=== PATIENT | female | born 1945 | race Caucasian/White ===

== ENCOUNTER → 2022-08-12 | Outpatient (CLI) | payer MEDICARE, MEDICAID ==
[~2022-08-12] VITALS: Ht 167 cm; Wt 87.0 kg
[~2022-08-12] MED LIST: CATHETER FLUSH 10 ML SYR IVP PRN; REGADENOSON 0.4 MG/5 ML SYR (LEXISCAN) IV ONE
[2022-08-12 13:23] VITALS: BP 140/82
--- NOTE | 2022-08-12 17:41 | Cardiology Stress Test Report ---
Stress Test Report Date of Procedure/Referring: Date of Procedure: Aug 12, 2022 PCP Prasanna Wray DO Admitting Physician Admitting Physician: Attending Physician: Saundra Alex MD Baseline Heart Rate: 93 Baseline Blood Pressure: Blood Pressure Systolic: 140 Blood Pressure Diastolic: 82 Baseline Vitals Vital Signs Date Time Temp Pulse Resp B/P (MAP) Pulse Ox O2 Delivery O2 Flow Rate FiO2 08/12/22 13:23 93 140/82 (101) Baseline EKG: Baseline EKG: NSR Summary After explaining the procedure to the patient, she signed a consent and then brought to the stress nuclear laboratory. Patient received 0.4 mg Lexiscan for stress test, ECG, heart rate and blood pressure were monitored continuously. Resting and stress dose of radio tracer were injected, imaging was acquired and reviewed in short axis, horizontal long axis and vertical long axis views. TID: 1.11 SSS: 4 SDS: 2 EF: 68 1. Patient tolerated Lexiscan well 2. Typical female pattern with no significant ischemia or infarction on SPECT images 3. Normal left ventricular size with ejection fraction 68% SAUNDRA ALEX MD Aug 12, 2022 17:41
== END ==
LOC: CARD 11:00
PROVIDERS: ATTEND Internal Medicine Cardiovascular Disease
DX: I10 Essential (primary) hypertension (principal); I25.10 Atherosclerotic heart disease of native coronary artery without angina pectoris; R07.2 Precordial pain
CPT/HCPCS: 78452; 93017; A9502; C8929; 93306

== ENCOUNTER 2022-09-10 05:30 | Outpatient (CLI) | payer MEDICARE, MEDICAID ==
[~2022-09-10] VITALS: Ht 167.6 cm; Wt 90.7 kg
[2022-09-10] MEDS ORDERED: BUDE10.22 IH (14:50)
[2022-09-10] MEDS ORDERED: SEVE800T13 PO (14:50)
[2022-09-10] MEDS ORDERED: AMIT50TA3 PO (14:50)
[2022-09-10] MEDS ORDERED: RT-ALBUINH INH (14:50)
[2022-09-10] MEDS ORDERED: FURO40TA4 PO (14:50)
[2022-09-10] MEDS ORDERED: ACET325T38 PO (14:50)
[2022-09-10] MEDS ORDERED: ALLO100T PO (14:50)
[2022-09-10] MEDS ORDERED: ONDA4TAB11 SL (14:50)
[2022-09-10] MEDS ORDERED: ATOR40TA70 PO (14:50)
[2022-09-10] MEDS ORDERED: CLOP75TA28 PO (14:50)
[2022-09-10] MEDS ORDERED: METO50TA7 PO (14:50)
== END 2022-09-10 14:52 | disposition home or self-care (01) ==
LOC: PREOP 05:30
PROVIDERS: ATTEND Surgery
DX: Z01.818 Encounter for other preprocedural examination (principal)

== ENCOUNTER 2022-09-17 09:41 | Day surgery (SDC) | payer MEDICARE, MEDICAID ==
[~2022-09-17] VITALS: Ht 167 cm; Wt 90.7 kg
[2022-09-17] VITALS (10 sets, daily range): BP systolic 188–226; BP diastolic 75–101
[~2022-09-17 09:41] MED LIST changes: +ACET325T38 PO; +ALLO100T PO; +AMIT50TA3 PO; +ATOR40TA70 PO; +BUDE10.22 IH; -CATHETER FLUSH 10 ML SYR IVP PRN; +CLOP75TA28 PO; +FURO40TA4 PO; +METO50TA7 PO; +ONDA4TAB11 SL; -REGADENOSON 0.4 MG/5 ML SYR (LEXISCAN) IV ONE; +RT-ALBUINH INH; +SEVE800T13 PO
[2022-09-17] MEDS ORDERED: LACTATED RINGERS 1,000 ML IV PRN (10:15)
[2022-09-17] MEDS ORDERED: ceFAZolin INJECTION 2,000 MG in NS (IVPB) 50 ML IV ONE (10:30)
[2022-09-17] MEDS ORDERED: NS IV 500 ML 500 ML IV PRN (10:45)
[2022-09-17 11:08] LABS: CALCIUM 9.1 MG/DL (8.5-10.1); CREATININE SERUM 3.32 MG/DL (0.60-1.30); POTASSIUM 3.8 MMOL/L (3.6-5.0)
[2022-09-17] MEDS ORDERED: proPOfol 200 MG/20 ML (DIPRIVAN) VIAL IV ONE (12:31)
[2022-09-17] MEDS ORDERED: fentaNYL INJ 100 MCG/2 ML AMP ONE (12:46)
[2022-09-17] MEDS ORDERED: ONDANSETRON 4 MG/2 ML (SDV) Z0FRAN ONE ×2 (12:55→14:37)
[2022-09-17] MEDS ORDERED: LIDOCAINE PF 2% 5 ML (XYLOCAINE) VIAL ONE (12:55)
[2022-09-17] MEDS ORDERED: HYDROmorphone 2 MG/ML VIAL (DILAUDID) ONE (12:56)
[2022-09-17] MEDS ORDERED: BUP/EPI 0.5% 1:200,000 (SENSORCAINE) 30 ML VIAL ONE (12:56)
[2022-09-17] MEDS ORDERED: ROCURONIUM 50 MG/5 ML (ZEMURON) VIAL IV ONE (12:56)
[2022-09-17] MEDS ORDERED: HEParin (CENTRAL IV FLUSH) 500 UNIT/5 ML SYR ONE (12:56)
[2022-09-17] MEDS ORDERED: BUP/EPI 0.5% 1:200,000 (SENSORCAINE) 30 ML VIAL INJ ONE (13:46)
[2022-09-17] MEDS: HEParin (CENTRAL IV FLUSH) 500 UNIT/5 ML SYR INJ ONE ×2 (13:46→14:21)
[2022-09-17] MEDS ORDERED: hydrALAZINE (APESOLINE) 20 MG/ML VIAL ONE (13:55)
[2022-09-17] MEDS ORDERED: SEVOFLURANE (ULTANE) 15 ML INHAL SOLN ONE (14:14)
[2022-09-17] MEDS ORDERED: GLYCOPYRROLATE 0.2 MG/ML (ROBINUL) 2 ML VIAL ONE (14:16)
[2022-09-17] MEDS ORDERED: NEOSTIGMINE (BLOXIVERZ ) 1 MG/1ML 10 ML VIAL ONE (14:16)
[2022-09-17] MEDS: ONDANSETRON 4 MG/2 ML (SDV) Z0FRAN IVP PRN ×2 (14:38→15:40)
[2022-09-17] MEDS ORDERED: ACHD5005 PO (14:42)
[2022-09-17] MEDS ORDERED: HYDROmorphone 2 MG/ML VIAL (DILAUDID) IV ONE (14:45)
--- NOTE | 2022-09-17 14:46 | Discharge Inst-Simple/Standard ---
Discharge Inst-Standard Discharge Medications New, Converted or Re-Newed RX: Transmitted to Pharmacy Patient Instructions/Follow Up Plan of Care/Instructions/FU: Dialysis Tomorrow for using Peritoneal dialysis catheter. Can start half runs. 200 mLs of saline have been left inside abdomen. Mayela 2 weeks. Activity as Tolerated: No Discharge Diet: Regular Diet Other Inst to Patient Follow up Appt: Make appointment for 2 week. Instructions: No lifting greater than 10 pounds. No strenuous activity. May shower in 24 hours, no tub bath or soaking. Use incentive spirometer at home as directed. No Smoking Skin/Wound Care: Keep areas clean and dry. The dialysis center will help you with the PD catheter tomorrow. Symptoms to Report: Appetite Changes, Extremity Discoloration, Numbness/Tingling, Swelling Increased, Bleeding Excessive, Eyesight Changes, Pain Increased, Urine Color Change, Constipation(Persistent), Fever over 101 degree F, Pain/Pressure in chest, Urinating Difficulty, Cough Up/Vomit Blood, Heart Beat Irreg/Pounding, Pain/Pressure in jaw, Vaginal Bleeding Increase, Cramps in feet or legs, Lightheadedness, Pain/Pressure in shoulder, Diarrhea(Persistent), Memory Changes Suddenly, Questions/Concerns, Weight gain consecutive days, Dizziness/Fainting, Nausea/Vomiting, Shortness of Breath, Weight gain over 2 pounds If questions or concerns contact your physician Or seek help at emergency department. LILIA PAEZ DO Sep 17, 2022 14:46
--- NOTE | 2022-09-18 13:29 | Anesthesia-General Post-Op ---
General Patient Condition Mental Status/LOC: Same as Preop Cardiovascular: Satisfactory Nausea/Vomiting: Absent Respiratory: Satisfactory Pain: Controlled Complications: Absent Post Op Complications Complications None Follow Up Care/Instructions Patient Instructions None needed. Anesthesia/Patient Condition Patient Condition Patient was doing well yesterday after the procedure with no complaints, stable vital signs, no apparent adverse anesthesia problems. No complications reported per nursing. MONTY GONZALEZ DO Sep 18, 2022 13:29
--- NOTE | 2022-09-18 20:28 | OPERATIVE REPORT ---
DATE OF SERVICE: 09/18/2022 PREOPERATIVE DIAGNOSIS: End-stage renal disease. POSTOPERATIVE DIAGNOSIS: End-stage renal disease. PROCEDURE: Laparoscopic peritoneal dialysis catheter placement. SURGEON: Steve Pedro DO ANESTHESIA: General. ESTIMATED BLOOD LOSS: Minimal. COMPLICATIONS: None. INDICATIONS: The patient is a 77-year-old female wanted to go to peritoneal dialysis. She understands risks and benefits of procedure and wishes to proceed. Consent was signed and in chart. DESCRIPTION OF PROCEDURE: The patient was taken to the operating suite. She was prepped and draped in sterile fashion site. Surgical pause was performed. Local anesthetic was infiltrated just above the umbilicus. Cautery was used to dissect down to the fascia, scored, grabbed it with Kochers, elevated, and the abdomen was then entered. An 0 Vicryl was placed in a [id number] fashion for closure at the end of the case. Yuan trocar was inserted. Pneumoperitoneum was achieved. Multiple adhesions through the abdominal cavity. Under direct visualization of the laparoscope, a 5 mm trocar port was placed in the left lower quadrant, LigaSure used to free all the intra-abdominal adhesions that would inhibit the placement of the peritoneal dialysis catheter. Once this was done, the yuan trocar was removed. An 8 mm robotic trocar was then placed at a 45-degree angle going through the midline incision, but going down through the rectus muscles aimed towards the pelvis. A 62 cm peritoneal dialysis catheter was then advanced through that trocar and placed down within the pelvis. The trocar was removed. Prior to placement of the trocar, 0 Vicryl was placed at the beginning of the case was tied. The catheter was brought out to where the cuff was just inside the rectus muscle. The catheter was then tunneled out left of the midline. The catheter was then flushed with 240 mL of normal saline. No issues. It vaughn fluid as well, we draw 40 mL without any difficulty. Leaving fluid for the catheter to flowed in. The catheter was then secured with a 2-0 nylon suture and the skin incisions were then closed with chandu. The patient had washed and dried and sterile bandages were applied. The patient tolerated the procedure well without any complications, taken to recovery room in stable condition. Job ID: [id number] DocumentID: [id number] Dictated Date: 09/18/2022 11:51:52 Neon Glass Blower Date: 09/18/2022 20:26:00 Dictated By: DO HUMERA MORSE
== END 2022-09-17 17:00 ==
LOC: SDC 09:41
PROVIDERS: ATTEND Surgery
DX: N18.6 End stage renal disease (principal); E66.01 Morbid (severe) obesity due to excess calories; Z68.32 Body mass index [BMI] 32.0-32.9, adult; Z87.891 Personal history of nicotine dependence
CPT/HCPCS: 36415; 80048; 87081